=== PATIENT | female | born 1990 | race Caucasian/White ===

== ENCOUNTER 2021-09-03 13:01 | Day surgery (SDC) | payer BC ==
[2021-09-03] MEDS ORDERED: MIDAZOLAM HCL 2 MG/2 ML INJ ONE (14:11)
[2021-09-03] MEDS ORDERED: FENTANYL CITR 100 MCG/2 ML ONE (14:11)
[2021-09-03] MEDS ORDERED: LIDOCAINE 1% MPF 2 ML AMPULE ONE (14:12)
[2021-09-03] MEDS ORDERED: propofoL 200 MG/20 ML VIAL IV ONE (14:12)
[2021-09-03] MEDS ORDERED: ROCURONIUM 50 MG/5 ML VIAL IV ONE (14:13)
[2021-09-03] MEDS ORDERED: dexAMETHasone 4 MG/ML VIAL ONE (14:17)
[2021-09-03] MEDS ORDERED: SUCCINYLCHOLINE 20 MG/ML (10 ML) IV ONE (14:19)
[2021-09-03] MEDS ORDERED: GLYCOPYRROLATE 0.2 MG/ML SYR ONE ×2 (14:24→15:55)
[2021-09-03] MEDS ORDERED: NEOSTIGMINE 1 MG/ML -5 ML ONE (14:24)
[2021-09-03] MEDS ORDERED: ONDANSETRON 4 MG/2 ML VIAL ONE (14:26)
[2021-09-03] MEDS ORDERED: PIPER TAZO 3.375 GM in NA CHLORIDE 0.9% 100 ML IV ONE (14:30)
[2021-09-03] MEDS: BUPIVACAINE 0.25% PF 30 ML VIAL ONE ×2 (14:34→14:56)
--- NOTE | 2021-09-03 14:56 | HP ---
Date of Admission: 09/03/2021 Brief History Of Present Illness: The patient is a 31-year-old female, who comes in with approximate ly 1-1/2 day history of epigastric, now right lower quadrant abdominal pain which was described as sh bebo in nature. It got progressively worse and as such she went to [facility] where a CT sc an and labs were performed, which came with a possible mild early appendicitis. As such, she was tra nsferred here with the above-stated complaints. Past Medical History: Negative. Past Surgical History: She has had a cholecystectomy laparoscopically. Allergies: NO KNOWN DRUG ALLERGIES. Medications: None. Family History: Reviewed and noncontributory. Review of Systems: Ten-point review of systems other than in HPI, denies. Physical Examination: General: At the time of my examination; she is awake, alert, oriented. Psychiatric: Appropriate. Conversive. HEENT: Normocephalic. Sclerae anicteric. Mucous membranes are moist. Oropharynx clear. Neck: Supple without JVD. Chest: Normal expansion and excursion. Cardiovascular: Regular rate and rhythm. Pulmonary: Clear to auscultation bilaterally. Abdomen: Soft with positive right lower quadrant tenderness to palpation. Positive focal peritoniti s. Positive guarding. Extremities: No clubbing, cyanosis, or edema. Skin: Warm and dry. Laboratory Data: From [facility] has a negative test. Sodium was 143, potassium 4.0, chloride 107, carbon dioxide is 29, BUN 14, creatinine 0.8. Her ALP is 69, ALT is 31, AST is 2 8, T bilirubin 0.8, total protein 8.1. Her GGT was 32. Her white blood cell count was 14, hemoglobi n was 15 over hematocrit of 44.0, platelet count was 272. CT scan was performed, which was officiall y read by Dr. 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 No acute skeletal or soft tissue abnormalities noted. Assessment And Plan: This is a 31-year-old female, who comes in with signs and symptoms of early acu te appendicitis, nonperforated. 1.IV fluid hydration. 2.Antibiotic coverage with Zosyn. 3.I have explained risks, benefits, and alternatives of laparoscopic possible open appendectomy incl uding, but not limited to bleeding, infection, damage to surrounding tissue, need for further operati on and procedures. The patient agrees to proceed as indicated. SHIRA/RILEY Voice ID: [id number]
[2021-09-03] MEDS: Ringers Lactate 1,000 ML IV ONE ×2 (15:30→15:35)
--- NOTE | 2021-09-03 15:30 | P.OP ---
Preoperative diagnosis: Acute Appendicitis Postoperative diagnosis: Acute Appendicitis Primary procedure: Laparoscopic Appendectomy Anesthesia: GETA Local Estimated blood loss: <10cc Specimen: Vermiform Appendix Findings: Acute non-perforated appendicits Complications: None Transferred to: Recovery Room Condition: Good
[2021-09-03] MEDS: FENTANYL CITR 100 MCG/2 ML ONE ×3 (15:53→16:20)
--- NOTE | 2021-09-03 15:56 | OP ---
Date of Procedure: 09/03/2021 Surgeon: Akin Poole MD, Preoperative Diagnosis: Acute appendicitis. Postoperative Diagnosis: Acute appendicitis. Procedure Performed: Laparoscopic appendectomy. Anesthesia: General endotracheal plus local with 0.25% Marcaine. Estimated Blood Loss: Less than 10 mL. Specimen: Vermiform appendix. Findings: Acute nonperforated appendicitis. Complications: None. Disposition: The patient was transferred to recovery room in good condition. Procedure In Detail: After informed consent was obtained, the patient was brought to the operating r oom, prepped and draped in the usual sterile fashion after adequate anesthesia was achieved. The are a of the infraumbilical area was anesthetized with 0.25% Marcaine, sharply incised. A 5 mm 0-degree optical trocar was introduced in the abdomen without evidence of complication. Insufflation was obta ined to 15 mmHg at this time. There was no injury to vital structures upon entry into the abdomen. Two additional trocars were placed, 1 in the right lower quadrant and 1 in the left lower quadrant, b oth similarly anesthetized and sharply incised. A 5 mm trocar was placed under direct visualization without evidence of complication. The umbilical trocar was then up-sized to a 12 mm under direct vis ion without evidence of complication. The patient was positioned head down right side up position. Ratcheted grasper was used to grasp the patient's appendix, found the right lower quadrant. A mesoap pendiceal window was created with a [place] retractor. Endo LINDA melo load was fired across the base of the appendix with good approximation of the tissues. There was no bleeding from the staple line a t this point. I then used a LigaSure device to take the mesoappendix down without evidence of compli cation. There was no bleeding or hemostatic maneuvers required at this point. The appendix was then placed in EndoCatch bag and removed through the umbilical trocar and sent off for pathologic examina tion. Re-insufflation was obtained at this time. The abdomen was copiously irrigated multiple times until completely clear and suctioned out until completely dry. The patient was positioned back in n eutral position. The umbilical trocar was then closed using a Cricket-Ras suture passer with 0 V icryl in interrupted fashion with good approximation tissues. On visualization of the left lower vladimir drant trocar, there was some bleeding under desufflation conditions. As such, I passed a #1 Vicryl s uture using a Benita suture passer in the left lower quadrant and tied this in a single inte rrupted suture with good hemostasis at this point the 5 mm trocar in the left lower quadrant. The ab domen was completely desufflated under direct visualization without evidence of complication. All re maining trocars were removed. All skin incisions were copiously irrigated and closed with 4-0 Monocr yl in a running fashion. Dermabond placed over top. The patient tolerated the procedure well withou t evidence of complication and transferred to PACU in good condition. All counts were correct at the end of the case. SHIRA/RILEY Voice ID: [id number] Report ID: [id number]
[2021-09-03] MEDS ORDERED: SUGAMMADEX SODIUM 200 MG/2 ML VIAL IV ONE (15:58)
[2021-09-03] MEDS ORDERED: MEPERIDINE HCL 25 MG/ML SYR ONE (16:14)
[2021-09-03] MEDS ORDERED: HYDROCODONE/APAP 10/325 TAB ONE (17:46)
== END 2021-09-03 18:27 | disposition home or self-care (01) ==
LOC: OR 13:01
PROVIDERS: ATTEND Surgery
PROC: 0DTJ4ZZ Resection of Appendix, Percutaneous Endoscopic Approach (ICD-10-PCS; principal; 2021-09-03 14:00)
DX: K37 Unspecified appendicitis (principal)
CPT/HCPCS: 88304; 44970; J2704; J1100; J0330; J2543; J2250; J3010 ×2; J2175; J2710; J7120; J2405

== ENCOUNTER 2022-07-18 07:35 | Day surgery (SDC) | payer BC ==
[2022-07-18] MEDS: Ringers Lactate 1,000 ML IV ONE ×2 (08:00→08:22)
[2022-07-18] MEDS ORDERED: propofoL 200 MG/20 ML VIAL IV ONE ×2 (08:27→08:28)
[2022-07-18] MEDS ORDERED: LIDOCAINE 1% MPF 5 ML VIAL ONE (08:27)
[2022-07-18 08:59] VITALS: O2SAT 100
--- NOTE | 2022-07-18 09:01 | ENDO RPT ---
[address], [address] EGD PROCEDURE REPORT EXAM DATE: 07/18/2022 PATIENT NAME: Meli Frausto MR#: [id number] BIRTHDATE: 1990 ATTENDING: Akin Poole DR STATUS: outpatient AIRLINE OPERATIONS AGENT: Jose Jorgensen and Isabela Braxton RN INDICATIONS: The patient is a 32 yr old Female here for an EGD due to epigastric pain and GERD PROCEDURE PERFORMED: EGD with biopsy for H. pylori MEDICATIONS: Per Anesthesia. TOPICAL ANESTHETIC: none CONSENT: The patient understands the risks and benefits of the procedure and understands that these risks include, but are not limited to: sedation, allergic reaction, infection, perforation and/or bleeding. Alternative means of evaluation and treatment include, among others: physical exam, x-rays, and/or surgical intervention. The patient elects to proceed with this endoscopic procedure. DESCRIPTION OF PROCEDURE: During intra-op preparation period all mechanical medical equipment was checked for proper function. Hand hygiene and appropriate measures for infection prevention was taken. Procedure, possible complications, and alternatives including but not limited to the possibility of bleeding, perforation, tear, infection, sepsis, need for surgery, need for blood transfusion, and anesthesia related complications were explained to the patient. After the risks, benefits and alternatives of the procedure were thoroughly explained, Informed consent was verified, confirmed and timeout was successfully executed by the treatment team. The patient was placed in the left lateral position. The patient was anesthetized with topical anesthesia. Through the anesthetized oropharyngeal area, the scope was passed without any difficulty. The Pentax EG-[id number] ([id number]) endoscope was introduced through the mouth and advanced to the second portion of the duodenum. Retroflexed views revealed a small hiatal hernia. The gastroscope was then slowly withdrawn and removed. Mild gastritis was found in the body and the antrum of the stomach. Multiple biopsies were obtained and sent to pathology. A biopsy for H. pylori was taken. ADVERSE EVENTS: There were no complications. IMPRESSIONS: 1. Mild gastritis was found in the body and the antrum of the stomach 2. Hiatus hernia RECOMMENDATIONS: 1. acid suppression therapy 2. anti-reflux regimen 3. await biopsy results 4. follow-up: office 2 week(s) 5. follow-up of helicobacter pylori status, treat if indicated REPEAT EXAM: Akin Poole DR eSigned: Akin Poole DR 07/18/2022 9:01 AM cc: CPT CODES: ICD9 CODES: PATIENT NAME: Meli Frausto MR#: [id number]
--- NOTE | 2022-07-18 09:05 | ENDO RPT ---
[address], [address] COLONOSCOPY PROCEDURE REPORT EXAM DATE: 07/18/2022 PATIENT NAME: Meli Frausto MR #: [id number] BIRTHDATE: 1990 ATTENDING: Akin Poole DR STATUS: outpatient VALANCE CUTTER: Jose Jorgensen and Isabela Braxton RN INDICATIONS: The patient is a 32 yr old Female here for a colonoscopy due to History of Colitis, CT findings recommendation PROCEDURE PERFORMED: Colonoscopy with biopsy MEDICATIONS: Per Anesthesia. ESTIMATED BLOOD LOSS: None CONSENT: The patient understands the risks and benefits of the procedure and understands that these risks include, but are not limited to: sedation, allergic reaction, infection, perforation and/or bleeding. Alternative means of evaluation and treatment include, among others: physical exam, x-rays, and/or surgical intervention. The patient elects to proceed with this endoscopic procedure. DESCRIPTION OF PROCEDURE: During intra-op preparation period all mechanical medical equipment was checked for proper function. Hand hygiene and appropriate measures for infection prevention was taken. Procedure, possible complications, alternatives including, but not limited to possibility of bleeding, perforation, tear, infection, sepsis, need for surgery, need for blood transfusion, were explained to the patient. After the risks, benefits and alternatives of the procedure were thoroughly explained, Informed consent was verified, confirmed and timeout was successfully executed by the treatment team. The patient was placed in the left lateral position. A digital rectal exam was performed and revealed internal hemorrhoids. After appropriate level of anesthesia, the scope was passed. The EC-[id number] ([id number]) endoscope was introduced through the anus and advanced to the cecum, which was identified by both the appendix and ileocecal valve. The quality of the prep was fair. The instrument was then slowly withdrawn as the colon was fully examined. Scope withdrawal time was 9 minutes. COLON FINDINGS: Mild diverticulosis was noted in the sigmoid colon. No bleeding was noted from the diverticulosis. There was no evidence of polyp throughout the entire examined colon. A diffuse circumferential patch of abnormal mucosa was found in the sigmoid colon. The mucosa was congested. Multiple biopsies of the area were performed using cold forceps. Small internal hemorrhoids were found. Retroflexed views revealed no abnormalities. The scope was then completely withdrawn from the patient and the procedure terminated. ADVERSE EVENTS: There were no complications. IMPRESSIONS: 1. Mild diverticulosis was noted in the sigmoid colon 2. There was no evidence of polyp throughout the entire examined colon 3. Diffuse circumferential abnormal mucosa was found in the sigmoid colon; The mucosa was congested; multiple biopsies of the area were performed using cold forceps 4. Small internal hemorrhoids RECOMMENDATIONS: 1. avoid NSAIDS for 2 weeks 2. fiber rich diet 3. await biopsy results 4. follow-up: office 2 week(s) 5. Monitor for any evidence of rectal bleeding. 6. yearly hemoccult starting in 4 years 7. hemorrhoidal hygiene 8. increase dietary water RECALL: for Colonoscopy, pending biopsy results. Akin Poole DR eSigned: Akin Poole DR 07/18/2022 9:05 AM cc: CPT CODES: ICD9 CODES: PATIENT NAME: Meli Frausto MR#: [id number]
[2022-07-18 13:55] VITALS: TEMP 97.2
[2022-07-18 13:58] VITALS: BP 106/66
== END 2022-07-18 09:46 | disposition home or self-care (01) ==
LOC: OR 07:35
PROVIDERS: ATTEND Surgery
PROC: 0DJ08ZZ Inspection of Upper Intestinal Tract, Via Natural or Artificial Opening Endoscopic (ICD-10-PCS; principal; 2022-07-18 08:30)
PROC: 0DBN8ZX Excision of Sigmoid Colon, Via Natural or Artificial Opening Endoscopic, Diagnostic (ICD-10-PCS; 2022-07-18 08:30)
DX: K29.50 Unspecified chronic gastritis without bleeding (principal); R10.13 Epigastric pain; R14.0 Abdominal distension (gaseous); K52.9 Noninfective gastroenteritis and colitis, unspecified; K44.9 Diaphragmatic hernia without obstruction or gangrene; K64.8 Other hemorrhoids; K57.30 Diverticulosis of large intestine without perforation or abscess without bleeding
CPT/HCPCS: 88312; 88305; 43235; 45380; J2704 ×2; J7120